=== PATIENT | female | born 1990 ===

== ENCOUNTER 2020-07-05 09:59 | Inpatient (IN) | payer OTHER ==
[2020-07-05] MEDS ORDERED: OXYTOCIN DRIP 30,000 MILLIUNITS/500 ML BAG IV ONE (10:27)
[2020-07-05] MEDS ORDERED: OXYTOCIN 10 UNIT/1 ML INJ ONE (10:28)
--- NOTE | 2020-07-05 10:45 | History and Physical Report ---
History of Present Illness Date of examination: 07/05/20 Date of admission: 07/05/20 Chief complaint: "I"m in pain" History of present illness: 29 y/o presented to [facility] ob triage @ 37.2 wks with c/o pain. SVE 10/100%/+2 station and pt was pushing. She states she initiated her care at [facility] but she is not sure how many wks she was when she started. Pt reports no problems throughout her . Med/surg/social/ hx unremarkable; family hx of diabetes per pt. Pt was admitted to L&D for delivery. No records are available. 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 Family/Genetic History: diabetes Social history: no significant social history - Obstetrical History Expected Date of Delivery: 07/24/20 Actual Gestation: 37 Week(s) 2 Day(s) : 3 Para: 2 Number of Living Children: 2 Review of Systems All systems: negative Eyes: deferred Ears, nose, mouth and throat: deferred Breasts: normal Genitourinary: normal appearance Rectal Exam: deferred - Physical Exam Breasts: Positive: normal Cardiovascular: Regular rate Lungs: Positive: Clear to auscultation Abdomen: Positive: normal appearance, soft, normal bowel sounds, other (gravid) Genitourinary (Female): Positive: normal external genitalia, normal perenium Vulva: both: normal Vagina: Positive: normal moisture Uterus: Positive: enlarged, normal contour, other (gravid) Adnexa: both: normal Anus/Rectum: Positive: normal perianal skin Extremities: Positive: normal - Obstetrical FHR: auscultation normal, category 1 Uterine Contraction Monitor Mode: External Cervical Dilatation: 10 Cervical Effacement Percentage: 100 station: +2 Uterine Contraction Pattern: Regular Uterine Tone Measurement Phase: Resting Uterine Contraction Intensity: Strong/Firm Results All other labs normal. Assessment and Plan A: IUP@ 37.2 wks No PNRs available P: Admit to L&D for delivery - Patient Problems (1) Term Current Visit: Yes Status: Acute
[2020-07-05] MEDS ORDERED: TERBUTALINE 1 MG/1 ML INJ SUB-Q PRN (11:08)
[2020-07-05] MEDS ORDERED: ePHEDrine SULFATE 50 MG/1 ML INJ IV PRN (11:08)
[2020-07-05] MEDS ORDERED: LIDOCAINE (2%) 20 MG/1 ML VIAL 20 ML MDV INFILTRATI NR (11:08)
[2020-07-05] MEDS ORDERED: LACTATED RINGERS 1,000 ML IV SCH (11:15)
--- NOTE | 2020-07-05 11:44 | Procedure Note ---
OB Delivery Note - Vaginal Delivery presentation: vertex Delivery position: OA Intrapartum events: precipitous labor- <3hr Delivery induction: none Delivery monitor: external FHT, external uterine Route of delivery: Delivery placenta: spontaneous Delivery cord: 3 umbilical vessels Episiotomy: none Delivery laceration: none Anesthesia: none Delivery comments: Called to for delivery; SVE 10/100%/+2 and pt was pushing. Precipitous of a viable live female infant in OA position. Spontaneous delivery of head and shoulders. Delayed cord clamping then cord was clamped x 2 and cut. Infant was given to awaiting NICU nurse for an evaul. 8/9. Cord blood was obtained. Spontaneous delivery of intact placenta with CVX3. FF@ U2 with fundal massage and 10u of Pitocin IM. Exploration of tears revealed none. Mom and baby left in stable condition with nurse. EBL 200cc. EFW 2595 GMS - Infant A at 1 minute: 8 at 5 minutes: 9 Gender: Female (FW 2595 gms)
[2020-07-05] MEDS ORDERED: OXYTOCIN DRIP 30 UNITS/500 ML BAG IV SCH (12:00)
[2020-07-05] MEDS ORDERED: LANOLIN/ZINC/DIMETHICONE (LANSINOH) 7 GM TP PRN (12:05)
[2020-07-05] MEDS ORDERED: PROMETHAZINE 25 MG RECT SUPP PR PRN (12:05)
[2020-07-05] MEDS ORDERED: MAGNESIUM HYDROXIDE (MOM) ORAL LIQD UDC PO PRN (12:05)
[2020-07-05] MEDS ORDERED: WITCH HAZEL/ GLYCERIN PAD TP PRN (12:05)
[2020-07-05] MEDS ORDERED: ONDANSETRON 4 MG/2 ML INJ IV PRN (12:05)
[2020-07-05] MEDS ORDERED: PROMETHAZINE 25 MG TAB PO PRN (12:05)
[2020-07-05] MEDS ORDERED: diphenhydrAMINE 25 MG CAP PO PRN (12:05)
[2020-07-05 12:10] LABS: Hematocrit 36.1 % (30.3-42.9); Hemoglobin 12.2 gm/dl (10.1-14.3); Mean Corpuscular HGB Conc 34 % (30-34); Mean Corpuscular Volume 90 fl (79-97); Platelet Count 284 K/mm3 (140-440); Red Blood Count 4.01 M/mm3 (3.65-5.03); Red Cell Distribution Width 12.9 % (13.2-15.2)
[2020-07-05] MEDS: IBUPROFEN 600 MG TAB PO SCH (15:49)
[2020-07-05] MEDS ORDERED: MINERAL OIL 30 ML ORAL LIQD PO PRN (22:00)
[2020-07-06] MEDS: IBUPROFEN 600 MG TAB PO SCH ×5 (00:15→23:59)
[2020-07-06 01:09] LABS: Hematocrit 33.8 % (30.3-42.9); Hemoglobin 11.3 gm/dl (10.1-14.3)
--- NOTE | 2020-07-06 12:28 | Discharge Summary ---
Providers - Providers Date of Admission: 07/05/20 11:08 Date of discharge: 07/06/20 Attending physician: ESTEBAN CORDON Primary care physician: ESTEBAN CORDON Hospitalization Reason for admission: active labor Delivery: Episiotomy: none Laceration: none Other procedures: none complications: none Discharge diagnosis: IUP at term delivered baby: female Hospital course: See admission H & P; OB delivery summary and PP progress notes Condition at discharge: Good Disposition: DC-01 TO HOME OR SELFCARE - Discharge Diagnoses (1) Status post normal vaginal delivery Status: Acute Plan - Provider Discharge Summary Activity: routine, no sex for 6 weeks, no heavy lifting 4 weeks, no strenuous exercise Diet: other (Iron rich diet) Instructions: routine Additional instructions: [] Smoking cessation referral if applicable(refer to patient education folder for contact #) [] Refer to [facility] Booklet Call your doctor immediately for: * Fever > 100.5 * Heavy vaginal bleeding ( >1 pad per hour) * Severe persistent headache * Shortness of breath * Reddened, hot, painful area to leg or breast - Follow up plan Follow up: ESTEBAN CORDON MD [Primary Care Provider] - 6 Weeks
[2020-07-07 13:05] VITALS: BP 112/67
== END 2020-07-07 12:30 | disposition home or self-care (01) | DRG 807 ==
LOC: TRG 09:59 → LD 09:59 → TRG 11:08 → LD 11:08 → OB 13:30
PROVIDERS: ADMIT Obstetrics & Gynecology; ATTEND Obstetrics & Gynecology
PROC: 10E0XZZ Delivery of Products of Conception, External Approach (ICD-10-PCS; principal; 2020-07-05)
DX: O62.3 Precipitate labor (principal); Z37.0 Single live birth; Z3A.37 37 weeks gestation of pregnancy; Z20.828 Contact with and (suspected) exposure to other viral communicable diseases; Z83.3 Family history of diabetes mellitus
CPT/HCPCS: 36415; 59025; 85014; 85018; 85027; 86850; 86900; 86901; 96372; G0378; J2590; U0003

== ENCOUNTER 2022-02-19 09:09 | Inpatient (IN) | payer SELFPAY ==
[2022-02-19] MEDS ORDERED: OXYTOCIN 10 UNIT/1 ML INJ IM PRN (09:37)
[2022-02-19] MEDS ORDERED: miSOPROStol 200 MCG TAB PR PRN (09:37)
[2022-02-19] MEDS ORDERED: LOPERAMIDE 2 MG CAP PO PRN (09:37)
[2022-02-19] MEDS ORDERED: ePHEDrine SULFATE 50 MG/1 ML INJ IV PRN (09:37)
[2022-02-19] MEDS ORDERED: ONDANSETRON 4 MG/2 ML INJ IV PRN (09:37)
[2022-02-19] MEDS ORDERED: TERBUTALINE 1 MG/1 ML INJ SUB-Q PRN (09:37)
[2022-02-19] MEDS ORDERED: CARBOPROST TROMETHAMINE 250 MCG/1 ML INJ IM PRN (09:37)
[2022-02-19] MEDS ORDERED: METHYLERGONOVINE MALEATE 0.2 MG/ML VIAL IM PRN (09:37)
[2022-02-19] MEDS ORDERED: BUTORPHANOL 2 MG/1 ML INJ IV PRN (09:37)
[2022-02-19] MEDS ORDERED: NALOXONE 0.4 MG/1 ML INJ IV PRN (09:37)
[2022-02-19] MEDS ORDERED: MINERAL OIL 30 ML ORAL LIQD PO PRN (09:37)
[2022-02-19] MEDS ORDERED: ACETAMINOPHEN 500 MG TAB PO PRN (09:41)
[2022-02-19] MEDS ORDERED: LACTATED RINGERS 1,000 ML ONE (09:41)
[2022-02-19] MEDS ORDERED: OXYTOCIN DRIP 30,000 MILLIUNITS/500 ML BAG IV ONE (09:42)
[2022-02-19] MEDS ORDERED: AMPICILLIN/NS 2 GM/100 ML 2 GM/100 ML BAG IV ONE ×2 (09:42→10:00)
[2022-02-19] MEDS ORDERED: LACTATED RINGERS 1,000 ML IV SCH (09:45)
[2022-02-19] MEDS ORDERED: OXYTOCIN DRIP 30 UNITS/500 ML BAG IV SCH ×2 (10:00)
[2022-02-19] MEDS ORDERED: LIDOCAINE (2%) 20 MG/1 ML VIAL 20 ML MDV INFILTRATI ONE (10:00)
--- NOTE | 2022-02-19 10:14 | History and Physical Report ---
History of Present Illness Date of examination: 02/19/22 Date of admission: 02/19/2022 Chief complaint: Intense Labor Pains History of present illness: Care at [facility]; course complicated by N&V (Promethazine); a UTI (Augmentin); and Bacterial Vagnosis (Metronidazole). Past History Past Medical History: no pertinent history Past Surgical History: no surgical history Family/Genetic History: diabetes (Mother), hypertension (Mother) Social history: no significant social history - Obstetrical History Expected Date of Delivery: 02/14/22 Actual Gestation: 40 Week(s) 5 Day(s) : 4 Para: 3 Hx # Term Pregnancies: 3 Number of Living Children: 3 #1 Gender: Female year: ,[birth year] Birthweight: 2.268 kg Method of Delivery: Vaginal Gestational age at delivery: 40 Complications: none #2 Infant Gender: Male year: ,[birth year] Method of Delivery: Vaginal Gestational age at delivery: 37 Complications: other (Psychomotor retardation and Heart murmur) #3 Gender: Female year: ,020 Method of Delivery: Vaginal Gestational age at delivery: 40 Medications and Allergies Allergies Allergy/AdvReac Type Severity Reaction Status Date / Time No Known Allergies Allergy Unverified 07/05/20 10:53 Home Medications Medication Instructions Recorded Confirmed Last Taken Type No Known Home Medications [No 07/05/20 07/05/20 Unknown History Reported Home Medications] Active Meds: Active Medications Acetaminophen (Acetaminophen 500 Mg Tab) 500 mg PO Q6H PRN PRN Reason: Pain, Mild (1-3) Butorphanol Tartrate (Butorphanol 2 Mg/1 Ml Inj) 2 mg IV Q2H PRN PRN Reason: Pain , Severe (7-10) Carboprost Tromethamine (Carboprost Tromethamine 250 Mcg/1 Ml Inj) 250 mcg IM ONCE PRN PRN Reason: Uterine Bleeding Ephedrine Sulfate (Ephedrine Sulfate 50 Mg/1 Ml Inj) 10 mg IV Q2M PRN PRN Reason: Hypotension Oxytocin/Sodium Chloride (Pitocin/Ns 30 Unit/500ml) 30 units in 500 mls @ 2 mls/hr IV TITR HANANE; Protocol Lactated Ringer's (Lactated Ringers) 1,000 mls @ 125 mls/hr IV DIRECT HANANE Oxytocin/Sodium Chloride (Pitocin/Ns 30 Unit/500ml) 30 units in 500 mls @ 40 mls/hr IV TITR HANANE; Protocol Ampicillin Sodium (Ampicillin/Ns 1 Gm/50 Ml) 1 gm in 50 mls @ 100 mls/hr IV Q4H HANANE; Protocol Ampicillin Sodium (Ampicillin/Ns 2 Gm/100 Ml) 2 gm in 100 mls @ 100 mls/hr IV ONCE ONE; Protocol Stop: 02/19/22 10:59 Loperamide HCl (Loperamide 2 Mg Cap) 2 mg PO ONCE PRN PRN Reason: give with Hemabate Methylergonovine Maleate (Methylergonovine Maleate 0.2 Mg/Ml Vial) 0.2 mg IM ONCE PRN PRN Reason: Uterine Bleeding Mineral Oil (Mineral Oil 30 Ml Oral Liqd) 30 ml PO QHS PRN PRN Reason: Constipation Misoprostol (Misoprostol 200 Mcg Tab) 800 mcg DE ONCE PRN PRN Reason: Uterine Bleeding Naloxone HCl (Naloxone 0.4 Mg/1 Ml Inj) 0.1 mg IV Q2MIN PRN PRN Reason: Res Rate </= 8 or 02 SAT < 92% Ondansetron HCl (Ondansetron 4 Mg/2 Ml Inj) 4 mg IV Q8H PRN PRN Reason: Nausea And Vomiting Oxytocin (Oxytocin 10 Unit/1 Ml Inj) 10 unit IM ONCE PRN PRN Reason: Uterine Bleeding Terbutaline Sulfate (Terbutaline 1 Mg/1 Ml Inj) 0.25 mg SUB-Q ONCE PRN PRN Reason: Hyperstimulation/Hypertonicity Review of Systems All systems: negative - Vital Signs Vital signs: Vital Signs Pulse BP Pulse Ox 94 H 113/73 100 02/19/22 09:25 02/19/22 09:25 02/19/22 09:25 Temp Pulse Resp BP Pulse Ox 91 H 113/73 95 02/19/22 09:42 02/19/22 09:25 02/19/22 09:42 - Physical Exam Breasts: Positive: normal Cardiovascular: Regular rate Lungs: Positive: Clear to auscultation, Normal air movement Abdomen: Positive: normal appearance, soft, normal bowel sounds Genitourinary (Female): Positive: normal external genitalia, normal perenium Vagina: Positive: normal moisture Uterus: Positive: enlarged Anus/Rectum: Positive: normal perianal skin Extremities: Positive: normal - Obstetrical FHR: category 1 Uterine Contraction Monitor Mode: External Cervical Dilatation: 9.5 (Moderate amount of meconium stained fluids upon AROM at 0945) Cervical Effacement Percentage: 100 station: 0 Results All other labs normal. Assessment and Plan A: IUP @ 40 5/7 Weeks Category I Tracing Active Labor GBS Positive P: Admit to L&D Per Routine Orders AROM GBS prophylaxis Anticipate
[2022-02-19] MEDS ORDERED: HYDROcodone/ACETAMINOPHEN 5-325 MG TAB PO PRN (10:25)
[2022-02-19] MEDS ORDERED: LANOLIN/ZINC/DIMETHICONE (LANSINOH) 7 GM TP PRN (10:25)
[2022-02-19] MEDS ORDERED: diphenhydrAMINE 25 MG CAP PO PRN (10:25)
[2022-02-19] MEDS ORDERED: WITCH HAZEL/ GLYCERIN PAD TP PRN (10:25)
--- NOTE | 2022-02-19 10:34 | Procedure Note ---
OB Delivery Note - Delivery Date of Delivery: 02/19/22 (0954) Surgeon: STEPHIE SCHMITT Estimated blood loss: other (150) - Vaginal Delivery presentation: vertex Delivery position: OA Intrapartum events: meconium, precipitous labor- <3hr Delivery induction: none Delivery augmentation: rupture of membranes Delivery monitor: external FHT, external uterine Route of delivery: Delivery placenta: spontaneous Delivery cord: 3 umbilical vessels Episiotomy: none Anesthesia: none Delivery comments: Precipitous vaginal delivery of a live 7'5 male infant over a intact perineum without pain control with Apgars of 8 and 9 at 0954 on 02/19/2022. not stimulated; Spontaneous cry at delivery. Cord double clamped and cut by ELENA Schmitt, and infant placed on warmer to awaiting NICU/Resp team due to meconium stained fluids. Spontaneous delivery of placenta complete and intact with Sung side presenting at 0958. Fundus is firm and midline located 4 below the U. Lochia is scant. +GBS not treated due to precipitous delivery. Cord blood collected; placenta discarded. - Infant A at 1 minute: 8 at 5 minutes: 9 Infant Gender: Male (7'5)
[2022-02-19] MEDS: IBUPROFEN 800 MG TAB PO SCH ×2 (11:00→20:45)
[2022-02-19 11:08] LABS: Hematocrit 34.5 % (30.3-42.9); Hemoglobin 11.9 gm/dl (10.1-14.3); Mean Corpuscular HGB Conc 35 % (30-34); Mean Corpuscular Volume 89 fl (79-97); Platelet Count 288 K/mm3 (140-440); Red Blood Count 3.89 M/mm3 (3.65-5.03); Red Cell Distribution Width 13.7 % (13.2-15.2)
[2022-02-19] MEDS ORDERED: AMPICILLIN/NS 1 GM/50 ML 1 GM/50 ML BAG IV SCH (14:00)
[2022-02-20 01:06] LABS: Hemoglobin 10.9 gm/dl (10.1-14.3)
[2022-02-20] MEDS: IBUPROFEN 800 MG TAB PO SCH ×2 (03:19→05:00)
--- NOTE | 2022-02-20 18:36 | Discharge Summary ---
Providers - Providers Date of Admission: 02/19/22 09:10 Date of discharge: 02/21/22 (oNCE CLEARED) Attending physician: ALBA ROWE [facility] Primary care physician: ALBA ROWE Hospitalization Reason for admission: active labor Delivery: Episiotomy: none Laceration: none complications: none Discharge diagnosis: IUP at term delivered [place] baby: male Condition at discharge: Good Disposition: 01 HOME / SELF CARE / HOMELESS Plan - Discharge Medications Prescriptions: Ibuprofen [Motrin 800 MG tab] 800 mg PO Q8HR #30 tablet - Provider Discharge Summary Activity: no sex for 6 weeks, no heavy lifting 4 weeks, no strenuous exercise Diet: routine Additional instructions: [] Smoking cessation referral if applicable(refer to patient education folder for contact #) [] Refer to [facility] Booklet Call your doctor immediately for: * Fever > 100.5 * Heavy vaginal bleeding ( >1 pad per hour) * Severe persistent headache * Shortness of breath * Reddened, hot, painful area to leg or breast * Drainage or odor from incision. * Keep incision clean and dry at all times and follow doctor's instructions regarding bathing/showering - Follow up plan Follow up: ALBA ROWE MD [Primary Care Provider] - 6 Weeks
[2022-02-21] MEDS: IBUPROFEN 800 MG TAB PO SCH ×2 (00:06→05:55)
[2022-02-21 14:17] VITALS: BP 109/64
== END 2022-02-21 14:55 | disposition home or self-care (01) | DRG 807 ==
LOC: LD 09:09 → TRG 09:09 → APU 09:10 → LD 09:10 → TRG 10:28 → OB 20:01
PROVIDERS: ADMIT Obstetrics & Gynecology; ATTEND Obstetrics & Gynecology
PROC: 10E0XZZ Delivery of Products of Conception, External Approach (ICD-10-PCS; principal; 2022-02-19)
DX: O77.0 Labor and delivery complicated by meconium in amniotic fluid (principal); Z37.0 Single live birth; O62.3 Precipitate labor; Z3A.40 40 weeks gestation of pregnancy; O99.284 Endocrine, nutritional and metabolic diseases complicating childbirth
CPT/HCPCS: 36415; 85014; 85018; 85027; 86850; 86900; 86901; 99211; G0378; G0463; U0003